=== PATIENT | male | born 1985 | race Two or more races ===

== ENCOUNTER 2020-01-01 15:32 | Emergency (ER) | payer MEDICAID ==
[~2020-01-01] VITALS: Ht 188 cm; Wt 130.0 kg
[2020-01-01 15:41] VITALS: BP 136/85
--- NOTE | 2020-01-01 15:46 | NUR ---
DC FROM TRIAGE.
== END 2020-01-01 16:13 | disposition left against medical advice (07) ==
LOC: ED 15:45
DX: K02.9 Dental caries, unspecified (principal)
CPT/HCPCS: 99283